=== PATIENT | male | born 2000 | race African-American/Black ===

== ENCOUNTER 2018-05-05 11:28 | Emergency (ER) | payer OTHER ==
[~2018-05-05] VITALS: Ht 182.9 cm; Wt 79.0 kg
[2018-05-05 11:31] VITALS: BP 132/66
[2018-05-05] MEDS ORDERED: BACITRACIN ZINC OINT UDPKT TOP ONE (11:45)
== END 2018-05-05 13:45 | disposition home or self-care (01) ==
LOC: ER 12:04
DX: S91.012A Laceration without foreign body, left ankle, initial encounter (principal); W01.0XXA Fall on same level from slipping, tripping and stumbling without subsequent striking against object, initial encounter; Y93.89 Activity, other specified; Y92.89 Other specified places as the place of occurrence of the external cause; Y99.8 Other external cause status
CPT/HCPCS: 99282; X7700